=== PATIENT | female | born 1995 | race Caucasian/White ===

== ENCOUNTER 2019-11-09 13:12 | Emergency (ER) | payer OTHER ==
[~2019-11-09] VITALS: Ht 167.6 cm; Wt 68.9 kg
[2019-11-09] MEDS ORDERED: LAMICTAL200 M1 PO (13:32)
[2019-11-09] MEDS ORDERED: ABILIFY10 MG PO (13:32)
== END 2019-11-09 17:09 | disposition home or self-care (01) ==
LOC: ER 13:12
DX: S61.441A Puncture wound with foreign body of right hand, initial encounter (principal); W26.8XXA Contact with other sharp object(s), not elsewhere classified, initial encounter; Y93.89 Activity, other specified; Y92.89 Other specified places as the place of occurrence of the external cause; Y99.8 Other external cause status